=== PATIENT | female | born 1970 | race Caucasian/White ===

== ENCOUNTER 2016-10-17 16:01 | Emergency (ER) | payer MEDICAID ==
[~2016-10-17] VITALS: Ht 162.6 cm; Wt 70.0 kg
[2016-10-17 16:10] VITALS: Ht 162.6 cm; Wt 70.0 kg
[2016-10-17] MEDS ORDERED: IBUPROFEN 600 MG TAB PO ONE (19:30)
--- NOTE | 2016-10-17 19:48 | ERD ---
ER Documentation Chief Complaint Date/Time DATE: 10/17/16 TIME: 19:47 Chief Complaint HAS R ANKLE PAIN SPRAINED 5 MONTHS AGO HPI 46-year-old female complains of bilateral ankle pain from an inversion injury 5 months ago. She states that she had fallen down the stairs, had an inversion injury and since then has had pain laterally, as well as swelling. Is achy, intermittent, worse with weightbearing. She has no weakness, no fevers or chills per ROS All systems reviewed and are negative except as per history of present illness. Medications Home Meds Active Scripts Naproxen* (Naprosyn*) 500 Mg Tablet, 500 MG PO BID Y for PAIN AND/OR INFLAMMATION, #30 TAB Prov:MORENA MUNSON PA-C 10/17/16 Allergies Allergies: Coded Allergies: No Known Allergy (Verified Allergy, Unknown, 12/19/06) PMhx/Soc History of Surgery: No Anesthesia Reaction: No Hx Neurological Disorder: No Hx Respiratory Disorders: No Hx Cardiac Disorders: No Hx Psychiatric Problems: No Hx Miscellaneous Medical Probl: No Hx Alcohol Use: Yes Hx Substance Use: No Hx Tobacco Use: Yes Smoking Status: Light tobacco smoker Physical Exam Vitals Vital Signs Date Time Temp Pulse Resp B/P Pulse Ox O2 Delivery O2 Flow Rate FiO2 10/17/16 16:10 98.5 76 18 140/66 97 Physical Exam General: Well-developed, well-nourished. The patient appears in no acute distress. HEENT: Head is normocephalic, atraumatic. No scleral icterus. Neck: Supple. Nontender. Lungs: Clear to auscultation. Normal air movement. Heart: Regular rate and rhythm. S1 and S2 are normal. No murmurs, gallops, or rubs. Abdomen: Nondistended. Extremities: Swelling over the right lateral malleolus, no bony deformities, Achilles is intact. She has full range of motion with right ankle flexion and dorsiflexion. There is no erythema, warmth. Pulses 2+. Neurologic: Alert and oriented 3. No focal deficits. Normal speech and gait. Skin: Normal turgor. No rash or lesions. Results 24 hrs Current Medications Medications (Trade) Dose Ordered Sig/Homero Route PRN Reason Start Time Stop Time Status Last Admin Dose Admin Ibuprofen (Motrin) 600 mg ONCE ONCE PO 10/17/16 19:30 10/17/16 19:31 DC 10/17/16 19:38 DIAGNOSTIC IMAGING REPORT Patient: BENSON NOYOLA : 1970 Age: 46 Sex: F MR #: [id number] DOS: 10/17/16 1909 Ordering MD: MORENA MUNSON PA-C Location: [facility] Room/Bed: PROCEDURE: XR Right Ankle. CLINICAL INDICATION: Right ankle injury 5 months ago. TECHNIQUE: AP, oblique and lateral views of the right ankle were performed. COMPARISON: None. FINDINGS: There is soft tissue swelling over the lateral malleolus. There is a small accessory ossicle distal to the right fibula. The other bony elements are unremarkable. The ankle mortise is normal. IMPRESSION: 1. Soft tissue swelling adjacent to the lateral malleolus. 2. Accessory ossicle distal to the right fibula. No acute bony fracture. RPTAT:AAJJ Physician Patrick Date Time Electronically viewed and signed by Karl Tripathi Physician on 10/17/2016 19:51 JM/ CC: MORENA MUNSON PA-C Procedures/MDM ED course: Patient was given Motrin 600 mg. patient's right ankle was wrapped with an LINDA wrap. Splint Assessment: Neurovascularly intact post splint placement with good fit. MDM: 46-year-old female comes in with right lateral ankle injury from 5 months ago, patient comes in with soft tissue swelling consistent with an ankle sprain. There is no evidence of a ligamental tear, Achilles tendon rupture, radiographic imaging was negative for fracture. Departure Diagnosis: Primary Impression: Right ankle pain Condition: Good MORENA MUNSON PA-C Oct 17, 2016 19:48
--- NOTE | 2016-10-17 19:52 | RADRPT ---
PROCEDURE: XR Right Ankle. CLINICAL INDICATION: Right ankle injury 5 months ago. TECHNIQUE: AP, oblique and lateral views of the right ankle were performed. COMPARISON: None. FINDINGS: There is soft tissue swelling over the lateral malleolus. There is a small accessory ossicle distal to the right fibula. The other bony elements are unremarkable. The ankle mortise is normal. IMPRESSION: 1. Soft tissue swelling adjacent to the lateral malleolus. 2. Accessory ossicle distal to the right fibula. No acute bony fracture. RPTAT:AAJJ Physician Patrick Date Time Electronically viewed and signed by Physician Patrick on 10/17/2016 19:51 /
[2016-10-17] MEDS ORDERED: NAPR-260 PO (20:03)
[2016-10-17 20:32] VITALS: BP 142/63; PULSE 60; RESP 18; TEMP 98
== END 2016-10-17 20:35 | disposition home or self-care (01) ==
LOC: FTE 16:01
DX: M25.571 Pain in right ankle and joints of right foot (principal); F17.210 Nicotine dependence, cigarettes, uncomplicated